=== PATIENT | male | born 1975 | race Hispanic/Latino ===

== ENCOUNTER → 2017-04-11 | Day surgery (SDC) | payer SELFPAY ==
[~2017-04-11] VITALS: Ht 167.6 cm; Wt 90.7 kg
[~2017-04-11] MED LIST: BACITRACIN 50,000 UNIT VIAL ONE; BACITRACIN ZINC 15 GM OINT ONE; BUPIVACAINE HCL 0.5% 10ML MPF VIAL INJ ONE; BUPIVACAINE HCL 0.5% INJ 30 ML VIAL INJ ONE; CEFAZOLIN SOD 1 GM VIAL IM ONE; CEFAZOLIN SOD 1 GM VIAL IV ONE; CEFAZOLIN SOD 1 GM VIAL ONE; CEFAZOLIN SOD 1 GM in WATER STERILE 10ML VIAL 10 ML IM SCH; CEFAZOLIN SOD 1 GM in WATER STERILE 10ML VIAL 10 ML IV SCH; FENTANYL CITRATE/PF 100MCG/2 ML INJ ONE; HYDROCODONE/APAP 10MG-325MG TAB PO ONE; LIDOCAINE HCL 1% LOCAL INJ 20 ML VIAL INJ ONE; LIDOCAINE HCL 1% LOCAL INJ 20 ML VIAL ONE; LIDOCAINE HCL 2% LOCAL INJ 5 ML SDV VIAL INJ ONE; MIDAZOLAM HCL 5MG/ML 2ML VIAL ONE; MORPHINE SULFATE 2 MG/ML SYR IV SCH; MORPHINE SULFATE 5 MG/ML VIAL IV ONE; ONDANSETRON HCL INJ 2 MG/ML VIAL IV STA; TETANUS/DIPHTHERIA TOX ADULT 0.5 ML SYR IM ONE
--- NOTE | 2017-04-11 16:41 | Diagnostic Imaging Report ---
PROCEDURE:X-RAY LEFT FINGER COMPARISON:None. INDICATIONS:LEFT MIDDLE FINGER CUT WITH SAW TODAY, RO FRACTURE FINDINGS: BONES:Fracture of the distal phalanx with large missing bony defect along the dorsal aspect. Questionable partial intact cortex along the volar aspect. SOFT TISSUES:Soft tissue defect overlying the dorsum of the middle finger with overlying bandage. OTHER:Negative CONCLUSION: Fracture of the distal phalanx of the 3rd finger with large missing bony defect along the dorsal aspect. Questionable partial intact cortex along the volar aspect. Dictated by: Nicholas Barajas M.D. on 04/11/2017 at 16:41 Electronically approved by: Nicholas Barajas M.D. on 04/11/2017 at 16:41
--- OUTSIDE RECORDS SUMMARY | 2017-04-11 17:44 | XMS REPORT ---
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 Allergies, Adverse Reactions, Alerts This patient has no known allergies or adverse reactions. Medications This patient has no known medications. Results Test Description Test Time Test Comments Text Results Atomic Results Result Comments FINGER LEFT [place] [address] Patient Name: KELIN MAGALLON MR #: [id number] : 1975 Age/Sex: 41/M Req #: [id number] Adm Physician: Ordered by: AURELIA ROBERTSON BAG TURNER Report #: [id number] Location: ER Room/Bed: Procedure: [id number] DX/FINGER LEFT Exam Date: 04/11/17 Exam Time: 1620 REPORT STATUS: Signed PROCEDURE: X-RAY LEFT FINGER COMPARISON: None. INDICATIONS: LEFT MIDDLE FINGER CUT WITH SAW TODAY, RO FRACTURE FINDINGS: BONES: Fracture of the distal phalanx with large missing bony defect along the dorsal aspect. Questionable partial intact cortex along the volar aspect. SOFT TISSUES: Soft tissue defect overlying the dorsum of the middle finger with overlying bandage. OTHER: Negative CONCLUSION: Fracture of the distal phalanx of the 3rd finger with large missing bony defect along the dorsal aspect. Questionable partial intact cortex along the volar aspect. Dictated by : Mary Carmen Barajas M.D. on 04/11/2017 at 16:41 Electronically approved by: Mary Carmen Barajas M.D. on 04/11/2017 at 16:41 Dictated By: MARY CARMEN BARAJAS MD 40 Transcribed By: ONDINA on 04/11/171640 COPY TO: AURELIA ROBERTSON NP
--- NOTE | 2017-04-12 08:18 | Operative Report ---
DATE OF PROCEDURE: April 11, 2017 PREOPERATIVE DIAGNOSES 1. Powered saw injury, left long finger with nearly complete amputation of distal phalanx. 2. Wound of left index finger. 3. Wound, left thumb. POSTOPERATIVE DIAGNOSES 1. Open fracture, left long finger of distal phalanx, traumatic incomplete amputation, distal phalanx. 2. Wounds of left index and left thumb. PROCEDURES 1. Open treatment of the left long finger distal phalanx with debridement of devitalized bone. 2. Percutaneous pinning of left long finger distal phalanx. 3. Complex repair of left long finger distal phalanx. 4. Debridement and repair of left index finger laceration. 5. Debridement and repair of left thumb laceration. ANESTHESIA: MAC/local. HISTORY: The patient is a 41-year-old right hand dominant male who came to the ER this afternoon with a table saw injury to the aforementioned fingers. The risks, benefits and alternatives of treatment were discussed with the patient through the use of an carbide operator. He is prepared to undergo the procedures outlined. DETAILS OF PROCEDURE: Patient was marked preoperatively in the holding area. He was brought to the operating theater. After the induction of adequate IV sedation, he was prepped and draped in the supine position. Digital blocks were placed at the base of the left long finger, the left index finger and the left thumb utilizing a 50-50 mixture of 1% Xylocaine plain and 0.5% Marcaine plain. A time out was then performed. The procedure was begun on the left long finger as it was the most severely injured. The distal phalanx was held on by a soft tissue pedicle on the ulnar side of the finger. The capillary refill and vascularity appeared to be intact. For this reason, the bone was debrided of all devitalized and comminuted particles. It was then irrigated, and under fluoroscopic control the distal phalanx was reduced and then percutaneously pinned with an 0.035 K-wire. At this point, once the finger had been stabilized soft tissue excisional debridement was carried out of all the fragmented and devitalized tissues along the line of the injury. The soft tissue injury extended from the eponychial fold and then around the radial side of the finger almost nearly complete to the ulnar side. At this point, the soft tissues were repaired using 5-0 nylon in an interrupted horizontal mattress fashion. At the completion of this repair, the tourniquet was removed, which had been placed just before the surgery began. The finger including the distal portion of the distal phalanx pinked up nicely. The wound was noted to be hemostatic. The left index finger soft tissue wound was primarily on the dorsal aspect of the distal phalanx. This was sharply debrided of all devitalized tissue, and then repaired using 5-0 nylon in an interrupted horizontal mattress fashion. The left thumb had a laceration on the volar aspect, which was full-thickness in nature, but involved no tendon. This was debrided and then repaired using 5-0 nylon in an interrupted horizontal mattress fashion as well. Bactroban ointment and sterile dressings were applied to each finger. The patient was returned to the recovery room in satisfactory condition, and discharged with a postoperative instruction sheet, as well as a followup appointment. Job#: [id number] NOEMI
== END | disposition home or self-care (01) ==
LOC: ER 15:39 → OR 17:42
PROVIDERS: ATTEND Plastic Surgery
DX: S68.623A Partial traumatic transphalangeal amputation of left middle finger, initial encounter (principal); S62.631B Displaced fracture of distal phalanx of left index finger, initial encounter for open fracture; W31.2XXA Contact with powered woodworking and forming machines, initial encounter; S61.012A Laceration without foreign body of left thumb without damage to nail, initial encounter; F17.210 Nicotine dependence, cigarettes, uncomplicated
CPT/HCPCS: 12001; 26765; 73140; J0690; J2001 ×2; J2250